=== PATIENT | female | born 1960 | race Caucasian/White ===

== ENCOUNTER 2020-10-14 11:32 | Inpatient (IN) | payer BC ==
[2020-10-14] MEDS ORDERED: Dexamethasone 10 MG/ML VIAL ONE (11:50)
[2020-10-14 13:11] LABS: Hemoglobin 14.5 g/dL (12.0-16.0); Mean Corpuscular HGB CONC 32.5 g/dL (32.0-36.0); Mean Corpuscular Hemoglobin 29.2 pg (27.0-31.0); Mean Corpuscular Volume 89.7 fL (78.0-98.0); Mean Platelet Volume 7.4 fL (7.4-10.4); Platelet Count 396 thou/uL (130-400); RBC Distribution Width 13.5 % (11.5-14.5); Red Blood Cell (RBC) Count 4.97 mill/uL (4.20-5.40); White Blood Cell (WBC) Count 18.2 thou/uL (4.8-10.8)
[2020-10-14 13:29] LABS: ALT (SGPT) 50 U/L (8-55); AST (SGOT) 31 U/L (5-34); Alkaline Phosphatase 97 U/L (40-110); Anion Gap 23 mmol/L (10-20); BUN (Urea Nitrogen) 63 mg/dL (9.8-20.1); Bilirubin, Total 0.7 mg/dL (0.2-1.2); Calc. Creatinine Clearance 0 mL/min (70-130); Calcium 8.9 mg/dL (7.8-10.44); Carbon Dioxide 20 mmol/L (23-31); Chloride 99 mmol/L (98-107); Globulin 3.3 g/dL (2.4-3.5); Glucose 145 mg/dL (80-115); Potassium 3.6 mmol/L (3.5-5.1); Protein, Total 7.3 g/dL (5.8-8.1); Sodium 138 mmol/L (136-145)
[2020-10-14 13:33] LABS: Band 20 % (5-11); Lymphocytes 3 % (21-51); MDiff Complete? YES; Metamyelocyte 1 % (0-0); Monocytes 9 % (0-10); Neutrophil 66 % (42-75); Platelet Morphology Comment Appears Adequate; RBC Morphology Normal; Reactive Lymphocytes 1 % (0-10)
[2020-10-14] MEDS ORDERED: Iopamidol-370 76% 500 ML 1 ML ONE (14:39)
[2020-10-14] MEDS ORDERED: cefTRIAXone\\ROCEPHIN 1 GM in Sodium Chloride 0.9% 100 ML IVPB SCH (15:00)
[2020-10-14] MEDS ORDERED: Ondansetron PF 4 MG/2 ML Vial IVP PRN (15:03)
[2020-10-14] MEDS ORDERED: Calcium Carbonate 500 MG ChewTAB PO PRN (15:03)
[2020-10-14] MEDS ORDERED: Sodium Chloride 0.65% Nasal 44 ML BOT EA NARE PRN (15:03)
[2020-10-14] MEDS ORDERED: Senokot S 8.6-50 MG TAB PO PRN (15:03)
[2020-10-14] MEDS ORDERED: Loratadine 10 MG TAB PO PRN (15:03)
[2020-10-14] MEDS ORDERED: HYDROcodone/Acetaminophen 5/325 mg Tablet PO PRN (15:03)
[2020-10-14] MEDS ORDERED: Bisacodyl 10 MG SUPP PR PRN (15:03)
[2020-10-14] MEDS ORDERED: Acetaminophen 325 MG TAB PO PRN (15:03)
[2020-10-14] MEDS ORDERED: Cepastat Lozenges 1 LOZ PO PRN (15:03)
[2020-10-14] MEDS ORDERED: Zolpidem Tartrate 5 MG TAB PO PRN (15:03)
[2020-10-14] MEDS ORDERED: Albuterol Sulfate 2.5 mg/3 ml Neb NEB PRN (15:08)
[2020-10-14] MEDS ORDERED: Albuterol 200 PUFF (6.7GM INHALER) INH PRN (15:33)
[2020-10-14] MEDS ORDERED: Azithromycin 500 MG in Sodium Chloride 0.9% 250 ML 250 ML IVPB SCH (16:00)
[2020-10-14] MEDS: REMDESIVIR (EUA) 200 MG in Sodium Chloride 0.9% 250 ML 210 ML IV SCH (17:43)
[2020-10-14] MEDS: cefTRIAXone\\ROCEPHIN 1 GM in Sodium Chloride 0.9% 100 ML IVPB SCH (20:23)
[2020-10-15] MEDS: REMDESIVIR (EUA) 200 MG in Sodium Chloride 0.9% 250 ML 210 ML IV SCH (01:02)
[2020-10-15] MEDS: Azithromycin 500 MG in Sodium Chloride 0.9% 250 ML 250 ML IVPB SCH ×2 (01:02→20:37)
[2020-10-15 06:35] LABS: ALT (SGPT) 41 U/L (8-55); AST (SGOT) 23 U/L (5-34); Albumin 3.5 g/dL (3.4-4.8); Alkaline Phosphatase 86 U/L (40-110); Anion Gap 18 mmol/L (10-20); BUN (Urea Nitrogen) 52 mg/dL (9.8-20.1); Bilirubin, Total 0.5 mg/dL (0.2-1.2); CRP (Inflammatory) 10.81 mg/dL (= or < 0.5); Calc. Creatinine Clearance 109 mL/min (70-130); Carbon Dioxide 21 mmol/L (23-31); Chloride 102 mmol/L (98-107); Globulin 3.5 g/dL (2.4-3.5); Glucose 140 mg/dL (80-115); Potassium 3.4 mmol/L (3.5-5.1); Sodium 138 mmol/L (136-145)
[2020-10-15 06:40] LABS: Band 23 % (5-11); Hemoglobin 13.4 g/dL (12.0-16.0); Lymphocytes 10 % (21-51); MDiff Complete? YES; Mean Corpuscular HGB CONC 32.4 g/dL (32.0-36.0); Mean Corpuscular Hemoglobin 29.1 pg (27.0-31.0); Mean Corpuscular Volume 89.6 fL (78.0-98.0); Mean Platelet Volume 7.4 fL (7.4-10.4); Monocytes 4 % (0-10); Neutrophil 63 % (42-75); Platelet Count 402 thou/uL (130-400); RBC Distribution Width 13.4 % (11.5-14.5); Red Blood Cell (RBC) Count 4.62 mill/uL (4.20-5.40); White Blood Cell (WBC) Count 16.9 thou/uL (4.8-10.8)
[2020-10-15] MEDS ORDERED: Potassium Chloride 20 MEQ TAB PO SCH (07:30)
[2020-10-15] MEDS: Dexamethasone 4 mg/ml Vial SLOW IVP SCH (08:51)
[2020-10-15] MEDS: Vitamin E 400 UNITS CAP PO SCH (08:51)
[2020-10-15] MEDS: Ascorbic Acid 500 mg Chewable Tablet PO SCH (08:51)
[2020-10-15] MEDS: Zinc Sulfate 220 MG CAP PO SCH (08:52)
[2020-10-15] MEDS: Enoxaparin Sodium 40 MG/0.4 ML SYRINGE SC SCH (08:52)
[2020-10-15] MEDS: Cholecalciferol 1,000 UNITS (25 MCG) TAB PO SCH (08:52)
[2020-10-15] MEDS: Loperamide HCl 2 MG CAP PO PRN (11:41)
[2020-10-15] MEDS: Ondansetron ODT 4 MG TAB PO PRN (11:41)
[2020-10-15] MEDS ORDERED: REMDESIVIR (EUA) 200 MG in Sodium Chloride 0.9% 250 ML 210 ML IV SCH (17:00)
[2020-10-15] MEDS: cefTRIAXone\\ROCEPHIN 1 GM in Sodium Chloride 0.9% 100 ML IVPB SCH (22:33)
[2020-10-16] MEDS: hydrALAZINE 20 MG/ML VIAL SLOW IVP PRN (07:17)
[2020-10-16] MEDS ORDERED: Potassium Chloride 20 MEQ TAB PO SCH (07:45)
[2020-10-16] MEDS: Cholecalciferol 1,000 UNITS (25 MCG) TAB PO SCH (09:41)
[2020-10-16] MEDS: Ascorbic Acid 500 mg Chewable Tablet PO SCH (09:41)
[2020-10-16] MEDS: Dexamethasone 4 mg/ml Vial SLOW IVP SCH (09:42)
[2020-10-16] MEDS: Enoxaparin Sodium 40 MG/0.4 ML SYRINGE SC SCH (09:42)
[2020-10-16] MEDS: Vitamin E 400 UNITS CAP PO SCH (09:43)
[2020-10-16] MEDS: Zinc Sulfate 220 MG CAP PO SCH (09:43)
[2020-10-16] MEDS: REMDESIVIR (EUA) 100 MG in Sodium Chloride 0.9% 250 ML 230 ML IV SCH (17:52)
[2020-10-16] MEDS: Azithromycin 500 MG in Sodium Chloride 0.9% 250 ML 250 ML IVPB SCH (20:32)
[2020-10-16] MEDS: cefTRIAXone\\ROCEPHIN 1 GM in Sodium Chloride 0.9% 100 ML IVPB SCH (21:58)
[2020-10-17] MEDS: Guaifenesin DM 100-10/5 ML UDCUP PO PRN ×2 (02:06→10:41)
[2020-10-17] MEDS: Ascorbic Acid 500 mg Chewable Tablet PO SCH (07:20)
[2020-10-17] MEDS: Vitamin E 400 UNITS CAP PO SCH (07:21)
[2020-10-17] MEDS: Enoxaparin Sodium 40 MG/0.4 ML SYRINGE SC SCH (07:21)
[2020-10-17] MEDS: Cholecalciferol 1,000 UNITS (25 MCG) TAB PO SCH (07:21)
[2020-10-17] MEDS: Dexamethasone 4 mg/ml Vial SLOW IVP SCH (07:21)
[2020-10-17] MEDS: Zinc Sulfate 220 MG CAP PO SCH (07:21)
[2020-10-17] MEDS: REMDESIVIR (EUA) 100 MG in Sodium Chloride 0.9% 250 ML 230 ML IV SCH (16:01)
[2020-10-17] MEDS: Ondansetron ODT 4 MG TAB PO PRN (17:38)
[2020-10-17] MEDS: cefTRIAXone\\ROCEPHIN 1 GM in Sodium Chloride 0.9% 100 ML IVPB SCH (21:26)
[2020-10-18] MEDS: Enoxaparin Sodium 40 MG/0.4 ML SYRINGE SC SCH ×2 (08:14→21:12)
[2020-10-18] MEDS: Zinc Sulfate 220 MG CAP PO SCH (08:14)
[2020-10-18] MEDS: Ascorbic Acid 500 mg Chewable Tablet PO SCH (08:14)
[2020-10-18] MEDS: Cholecalciferol 1,000 UNITS (25 MCG) TAB PO SCH (08:14)
[2020-10-18] MEDS: Ondansetron ODT 4 MG TAB PO PRN (08:15)
[2020-10-18] MEDS: Vitamin E 400 UNITS CAP PO SCH (08:15)
[2020-10-18] MEDS: Dexamethasone 4 mg/ml Vial SLOW IVP SCH (08:15)
[2020-10-18 09:08] LABS: Anion Gap 16 mmol/L (10-20); BUN (Urea Nitrogen) 23 mg/dL (9.8-20.1); Calc. Creatinine Clearance 154 mL/min (70-130); Calcium 8.6 mg/dL (7.8-10.44); Carbon Dioxide 18 mmol/L (23-31); Chloride 108 mmol/L (98-107); Glucose 130 mg/dL (80-115); Potassium 4.2 mmol/L (3.5-5.1); Sodium 138 mmol/L (136-145)
[2020-10-18 09:54] LABS: Band 12 % (5-11); Eosinophils 2 % (0-10); Hemoglobin 15.1 g/dL (12.0-16.0); Lymphocytes 10 % (21-51); MDiff Complete? YES; Mean Corpuscular HGB CONC 32.5 g/dL (32.0-36.0); Mean Corpuscular Hemoglobin 29.6 pg (27.0-31.0); Mean Corpuscular Volume 91.2 fL (78.0-98.0); Mean Platelet Volume 8.2 fL (7.4-10.4); Metamyelocyte 2 % (0-0); Monocytes 7 % (0-10); Neutrophil 67 % (42-75); Platelet Count 98 thou/uL (130-400); Platelet Morphology Comment Appears Decreased; RBC Distribution Width 13.6 % (11.5-14.5); Red Blood Cell (RBC) Count 5.11 mill/uL (4.20-5.40); Vacuoles SLIGHT; White Blood Cell (WBC) Count 17.7 thou/uL (4.8-10.8)
[2020-10-18] MEDS: REMDESIVIR (EUA) 100 MG in Sodium Chloride 0.9% 250 ML 230 ML IV SCH (16:26)
[2020-10-18] MEDS: cefTRIAXone\\ROCEPHIN 1 GM in Sodium Chloride 0.9% 100 ML IVPB SCH (21:11)
[2020-10-18] MEDS: Guaifenesin DM 100-10/5 ML UDCUP PO PRN (22:12)
[2020-10-19] MEDS: Vitamin E 400 UNITS CAP PO SCH (08:32)
[2020-10-19] MEDS: Cholecalciferol 1,000 UNITS (25 MCG) TAB PO SCH (08:32)
[2020-10-19] MEDS: Ascorbic Acid 500 mg Chewable Tablet PO SCH (08:32)
[2020-10-19] MEDS: Amlodipine 10 MG TAB PO SCH (08:32)
[2020-10-19] MEDS: Escitalopram Oxalate 10 mg Tablet PO SCH (08:33)
[2020-10-19] MEDS: Dexamethasone 4 mg/ml Vial SLOW IVP SCH (08:33)
[2020-10-19] MEDS: Zinc Sulfate 220 MG CAP PO SCH (08:33)
[2020-10-19] MEDS: Enoxaparin Sodium 40 MG/0.4 ML SYRINGE SC SCH (08:33)
[2020-10-19] MEDS ORDERED: Melatonin 3 MG TAB PO PRN (09:59)
[2020-10-19] MEDS ORDERED: clonazePAM 0.5 MG TAB PO PRN (10:01)
[2020-10-19] MEDS ORDERED: Sodium Chloride 0.65% Nasal 44 ML BOT EA NARE PRN (10:08)
[2020-10-19] MEDS ORDERED: Furosemide 20 MG/2 ML VIAL SLOW IVP SCH (10:15)
[2020-10-19] MEDS ORDERED: Ivermectin 3 MG TAB PO SCH (11:00)
[2020-10-19] MEDS: Thiamine HCl 200 MG/2 ML VIAL SLOW IVP SCH ×2 (11:42→21:16)
[2020-10-19] MEDS: Piperacillin/Tazobactam 3.375 GM in Sodium Chloride 0.9% 100 ML IVPB SCH ×2 (11:49→17:57)
[2020-10-19] MEDS: Azithromycin 500 MG in Sodium Chloride 0.9% 250 ML 250 ML IVPB SCH (11:59)
[2020-10-19] MEDS: Ascorbic Acid 2,000 MG in Sodium Chloride 0.9% 50 ML IVPB SCH ×2 (11:59→18:34)
[2020-10-19 12:18] LABS: Actual Bicarbonate (HCO3v) 21 mEq/L (22-28); Base Excess -1.3 mEq/L (-2.0 to +3.0); Calcium, Ionized (venous) 1.11 mmol/L (1.16-1.32); Chloride (VBG) 107 mmol/L (98-106); Hemoglobin (Hb) 14.9 g/dL (11.7-16.0); Sodium 137.3 mmol/L (133-146); pH (venous) 7.46 (7.32-7.43)
[2020-10-19 12:30] LABS: Hemoglobin 14.6 g/dL (12.0-16.0); Mean Corpuscular Hemoglobin 30.9 pg (27.0-31.0); Mean Platelet Volume 7.1 fL (7.4-10.4); Platelet Count 320 thou/uL (130-400); RBC Distribution Width 13.5 % (11.5-14.5); Red Blood Cell (RBC) Count 4.71 mill/uL (4.20-5.40); White Blood Cell (WBC) Count 23.1 thou/uL (4.8-10.8)
[2020-10-19 12:32] LABS: Platelet Count 320 thou/uL (130-400)
[2020-10-19 12:36] LABS: Reticulocyte Count 2.3 % (0.5-1.5)
[2020-10-19 12:37] LABS: INR-International Normal Ratio 1.2; Prothrombin Time 15.2 sec (12.0-14.7)
[2020-10-19 12:38] LABS: D-Dimer Test 2.56 *mcg/mL (0.27-0.43); PTT 33.8 sec (22.9-36.1)
[2020-10-19 12:42] LABS: CRP (Inflammatory) 16.01 mg/dL (= or < 0.5)
[2020-10-19 12:43] LABS: Fibrinogen 751 mg/dL (253-463)
[2020-10-19 12:48] LABS: FSP-Qualitative ABNORMAL (Normal); FSP-Semiquantitative >=5 & <20 mcg/mL (Less than 5)
[2020-10-19 12:51] LABS: Band 3 % (5-11); Eosinophils 2 % (0-10); Lymphocytes 7 % (21-51); MDiff Complete? YES; Monocytes 6 % (0-10); Neutrophil 82 % (42-75); Platelet Morphology Comment Appears Adequate; RBC Morphology Normal
[2020-10-19 13:33] LABS: Strep pneumo Urine Ag NEGATIVE (NEGATIVE)
[2020-10-19] MEDS: REMDESIVIR (EUA) 100 MG in Sodium Chloride 0.9% 250 ML 230 ML IV SCH (17:57)
[2020-10-19] MEDS: Famotidine 20 MG TAB PO SCH (21:15)
[2020-10-19] MEDS: Colchicine 0.6 MG TAB PO SCH (21:15)
[2020-10-20] MEDS: Ascorbic Acid 2,000 MG in Sodium Chloride 0.9% 50 ML IVPB SCH ×5 (00:28→23:21)
[2020-10-20] MEDS: Piperacillin/Tazobactam 3.375 GM in Sodium Chloride 0.9% 100 ML IVPB SCH ×5 (00:28→23:21)
[2020-10-20 03:49] LABS: Fibrinogen 737 mg/dL (253-463)
[2020-10-20 03:50] LABS: D-Dimer Test 2.09 *mcg/mL (0.27-0.43); INR-International Normal Ratio 1.3; PTT 36.3 sec (22.9-36.1)
[2020-10-20 03:58] LABS: FSP-Qualitative ABNORMAL (Normal); FSP-Semiquantitative >=5 & <20 mcg/mL (Less than 5); Platelet Count 306 thou/uL (130-400)
[2020-10-20 04:08] LABS: ALT (SGPT) 25 U/L (8-55); AST (SGOT) 14 U/L (5-34); Albumin 2.9 g/dL (3.4-4.8); Alkaline Phosphatase 97 U/L (40-110); Anion Gap 15 mmol/L (10-20); BUN (Urea Nitrogen) 23 mg/dL (9.8-20.1); Bilirubin, Direct 0.3 mg/dL (0.1-0.3); Bilirubin, Total 0.6 mg/dL (0.2-1.2); Calc. Creatinine Clearance 152 mL/min (70-130); Calcium 8.7 mg/dL (7.8-10.44); Carbon Dioxide 19 mmol/L (23-31); Chloride 107 mmol/L (98-107); Glucose 120 mg/dL (80-115); Protein, Total 5.9 g/dL (5.8-8.1); Sodium 137 mmol/L (136-145)
[2020-10-20] MEDS ORDERED: methylPREDNISolone Sod Succ/PF 125 MG/2 ML VIAL IVPB SCH (09:00)
[2020-10-20] MEDS: methylPREDNISolone Sod Succ 1 GM in Sodium Chloride 0.9% 250 ML 250 ML IVPB SCH (09:36)
[2020-10-20] MEDS: Cholecalciferol 1,000 UNITS (25 MCG) TAB PO SCH (09:37)
[2020-10-20] MEDS: Zinc Sulfate 220 MG CAP PO SCH (09:37)
[2020-10-20] MEDS: Escitalopram Oxalate 10 mg Tablet PO SCH (09:37)
[2020-10-20] MEDS: Famotidine 20 MG TAB PO SCH ×2 (09:37→20:25)
[2020-10-20] MEDS: Ivermectin 3 MG TAB PO SCH (09:37)
[2020-10-20] MEDS: Colchicine 0.6 MG TAB PO SCH ×2 (09:37→20:25)
[2020-10-20] MEDS: Amlodipine 10 MG TAB PO SCH (09:37)
[2020-10-20] MEDS: Thiamine HCl 200 MG/2 ML VIAL SLOW IVP SCH ×2 (09:38→22:11)
[2020-10-20] MEDS: Vitamin E 400 UNITS CAP PO SCH (09:39)
[2020-10-20] MEDS: Azithromycin 500 MG in Sodium Chloride 0.9% 250 ML 250 ML IVPB SCH (11:43)
[2020-10-21] MEDS: Piperacillin/Tazobactam 3.375 GM in Sodium Chloride 0.9% 100 ML IVPB SCH ×3 (05:28→17:23)
[2020-10-21] MEDS: Ascorbic Acid 2,000 MG in Sodium Chloride 0.9% 50 ML IVPB SCH ×3 (05:28→17:23)
[2020-10-21 08:11] LABS: Hemoglobin 14.3 g/dL (12.0-16.0); Mean Corpuscular HGB CONC 32.9 g/dL (32.0-36.0); Mean Corpuscular Volume 91.2 fL (78.0-98.0); Mean Platelet Volume 7.5 fL (7.4-10.4); Platelet Count 332 thou/uL (130-400); RBC Distribution Width 13.7 % (11.5-14.5); Red Blood Cell (RBC) Count 4.77 mill/uL (4.20-5.40); White Blood Cell (WBC) Count 19.8 thou/uL (4.8-10.8)
[2020-10-21 08:29] LABS: Anion Gap 14 mmol/L (10-20); BUN (Urea Nitrogen) 21 mg/dL (9.8-20.1); Calc. Creatinine Clearance 147 mL/min (70-130); Calcium 9.1 mg/dL (7.8-10.44); Carbon Dioxide 20 mmol/L (23-31); Chloride 108 mmol/L (98-107); Glucose 220 mg/dL (80-115); Potassium 3.7 mmol/L (3.5-5.1); Sodium 138 mmol/L (136-145)
[2020-10-21] MEDS: Vitamin E 400 UNITS CAP PO SCH (08:45)
[2020-10-21] MEDS: Famotidine 20 MG TAB PO SCH ×2 (08:45→20:22)
[2020-10-21] MEDS: Escitalopram Oxalate 10 mg Tablet PO SCH (08:46)
[2020-10-21] MEDS: Cholecalciferol 1,000 UNITS (25 MCG) TAB PO SCH (08:46)
[2020-10-21] MEDS: Amlodipine 10 MG TAB PO SCH (08:46)
[2020-10-21] MEDS: Ivermectin 3 MG TAB PO SCH (08:46)
[2020-10-21] MEDS: Colchicine 0.6 MG TAB PO SCH ×2 (08:46→20:22)
[2020-10-21] MEDS: Zinc Sulfate 220 MG CAP PO SCH (08:46)
[2020-10-21] MEDS: Thiamine HCl 200 MG/2 ML VIAL SLOW IVP SCH ×2 (08:49→20:23)
[2020-10-21] MEDS: methylPREDNISolone Sod Succ 1 GM in Sodium Chloride 0.9% 250 ML 250 ML IVPB SCH (09:35)
[2020-10-21 09:47] LABS: Band 7 % (5-11); Lymphocytes 6 % (21-51); MDiff Complete? YES; Monocytes 2 % (0-10); Neutrophil 85 % (42-75); RBC Morphology Normal
[2020-10-21] MEDS: Azithromycin 500 MG in Sodium Chloride 0.9% 250 ML 250 ML IVPB SCH (12:33)
[2020-10-21] MEDS: METHYLPREDNISOLONE SOD SUCC IVPB SCH (12:45)
[2020-10-21] MEDS: SODIUM CHLORIDE 0.9% IVPB SCH (12:45)
[2020-10-22] MEDS: Ascorbic Acid 2,000 MG in Sodium Chloride 0.9% 50 ML IVPB SCH ×2 (00:04→07:00)
[2020-10-22] MEDS: Piperacillin/Tazobactam 3.375 GM in Sodium Chloride 0.9% 100 ML IVPB SCH ×4 (00:05→18:21)
[2020-10-22 03:22] LABS: Hemoglobin 13.7 g/dL (12.0-16.0); Mean Corpuscular HGB CONC 33.5 g/dL (32.0-36.0); Mean Corpuscular Hemoglobin 30.3 pg (27.0-31.0); Mean Corpuscular Volume 90.4 fL (78.0-98.0); Mean Platelet Volume 7.5 fL (7.4-10.4); Platelet Count 346 thou/uL (130-400); RBC Distribution Width 13.7 % (11.5-14.5); Red Blood Cell (RBC) Count 4.51 mill/uL (4.20-5.40); White Blood Cell (WBC) Count 20.9 thou/uL (4.8-10.8)
[2020-10-22 03:36] LABS: Anion Gap 14 mmol/L (10-20); BUN (Urea Nitrogen) 22 mg/dL (9.8-20.1); Calc. Creatinine Clearance 143 mL/min (70-130); Calcium 8.4 mg/dL (7.8-10.44); Carbon Dioxide 18 mmol/L (23-31); Chloride 111 mmol/L (98-107); Glucose 238 mg/dL (80-115); Potassium 3.8 mmol/L (3.5-5.1); Sodium 139 mmol/L (136-145)
[2020-10-22 03:46] LABS: Band 2 % (5-11); Lymphocytes 13 % (21-51); MDiff Complete? YES; Monocytes 9 % (0-10); Neutrophil 76 % (42-75); Platelet Morphology Comment Appears Adequate; RBC Morphology Normal
[2020-10-22] MEDS: Amlodipine 10 MG TAB PO SCH (08:02)
[2020-10-22] MEDS: Escitalopram Oxalate 10 mg Tablet PO SCH (08:02)
[2020-10-22] MEDS: Famotidine 20 MG TAB PO SCH ×2 (08:02→19:44)
[2020-10-22] MEDS: Vitamin E 400 UNITS CAP PO SCH (08:03)
[2020-10-22] MEDS: Ivermectin 3 MG TAB PO SCH (08:03)
[2020-10-22] MEDS: Zinc Sulfate 220 MG CAP PO SCH (08:03)
[2020-10-22] MEDS: Cholecalciferol 1,000 UNITS (25 MCG) TAB PO SCH (08:03)
[2020-10-22] MEDS: Colchicine 0.6 MG TAB PO SCH ×2 (08:03→19:44)
[2020-10-22] MEDS: Thiamine HCl 200 MG/2 ML VIAL SLOW IVP SCH (08:03)
[2020-10-22] MEDS: Loperamide HCl 2 MG CAP PO PRN (08:18)
[2020-10-22] MEDS: Enoxaparin Sodium 40 MG/0.4 ML SYRINGE SC SCH (10:52)
[2020-10-22] MEDS: Ascorbic Acid 500 mg Chewable Tablet PO SCH ×2 (10:53→19:44)
[2020-10-22] MEDS: Thiamine 100 MG TAB PO SCH (10:53)
[2020-10-22] MEDS: METHYLPREDNISOLONE SOD SUCC IVPB SCH (11:16)
[2020-10-22] MEDS: SODIUM CHLORIDE 0.9% IVPB SCH (11:16)
[2020-10-23 05:51] LABS: #Lymphocytes 0.9 thou/uL (1.20-3.40); #Neutrophils 15.7 thou/uL (1.40-6.50); %Basophils 0.1 % (0.0-1.0); %Eosinophils 0.1 % (0.0-10.0); %Lymphocytes 4.9 % (21.0-51.0); %Monocytes 5.5 % (0.0-10.0); %Neutrophils 89.5 % (42.0-75.0); Hemoglobin 13.2 g/dL (12.0-16.0); Mean Corpuscular HGB CONC 32.9 g/dL (32.0-36.0); Mean Corpuscular Hemoglobin 29.7 pg (27.0-31.0); Mean Corpuscular Volume 90.2 fL (78.0-98.0); Platelet Count 357 thou/uL (130-400); RBC Distribution Width 13.8 % (11.5-14.5); Red Blood Cell (RBC) Count 4.43 mill/uL (4.20-5.40); White Blood Cell (WBC) Count 17.5 thou/uL (4.8-10.8)
[2020-10-23] MEDS: Piperacillin/Tazobactam 3.375 GM in Sodium Chloride 0.9% 100 ML IVPB SCH (05:55)
[2020-10-23] MEDS: Zinc Sulfate 220 MG CAP PO SCH (08:38)
[2020-10-23] MEDS: Escitalopram Oxalate 10 mg Tablet PO SCH (08:38)
[2020-10-23] MEDS: Ascorbic Acid 500 mg Chewable Tablet PO SCH ×2 (08:38→21:08)
[2020-10-23] MEDS: Thiamine 100 MG TAB PO SCH (08:38)
[2020-10-23] MEDS: Cholecalciferol 1,000 UNITS (25 MCG) TAB PO SCH (08:38)
[2020-10-23] MEDS: Colchicine 0.6 MG TAB PO SCH ×2 (08:38→21:09)
[2020-10-23] MEDS: Amlodipine 10 MG TAB PO SCH (08:39)
[2020-10-23] MEDS: Famotidine 20 MG TAB PO SCH ×2 (08:39→21:08)
[2020-10-23] MEDS: Enoxaparin Sodium 40 MG/0.4 ML SYRINGE SC SCH (08:39)
[2020-10-23] MEDS: Ivermectin 3 MG TAB PO SCH (08:42)
[2020-10-23] MEDS: Vitamin E 400 UNITS CAP PO SCH (08:42)
[2020-10-23] MEDS: SODIUM CHLORIDE 0.9% IVPB SCH (09:42)
[2020-10-23] MEDS: METHYLPREDNISOLONE SOD SUCC IVPB SCH (09:42)
[2020-10-24 05:34] LABS: Band 2 % (5-11); Hemoglobin 13.1 g/dL (12.0-16.0); Lymphocytes 4 % (21-51); MDiff Complete? YES; Mean Corpuscular HGB CONC 33.4 g/dL (32.0-36.0); Mean Corpuscular Hemoglobin 29.8 pg (27.0-31.0); Mean Corpuscular Volume 89.3 fL (78.0-98.0); Mean Platelet Volume 7.9 fL (7.4-10.4); Monocytes 10 % (0-10); Neutrophil 84 % (42-75); Platelet Count 309 thou/uL (130-400); Platelet Morphology Comment Appears Adequate; RBC Distribution Width 13.5 % (11.5-14.5); RBC Morphology Normal; Red Blood Cell (RBC) Count 4.39 mill/uL (4.20-5.40); White Blood Cell (WBC) Count 14.3 thou/uL (4.8-10.8)
[2020-10-24] MEDS: SODIUM CHLORIDE 0.9% IVPB SCH (09:15)
[2020-10-24] MEDS: Enoxaparin Sodium 40 MG/0.4 ML SYRINGE SC SCH (09:15)
[2020-10-24] MEDS: METHYLPREDNISOLONE SOD SUCC IVPB SCH (09:15)
[2020-10-24] MEDS: Colchicine 0.6 MG TAB PO SCH ×2 (09:15→20:10)
[2020-10-24] MEDS: Amlodipine 10 MG TAB PO SCH (09:16)
[2020-10-24] MEDS: Famotidine 20 MG TAB PO SCH ×2 (09:16→20:11)
[2020-10-24] MEDS: Cholecalciferol 1,000 UNITS (25 MCG) TAB PO SCH (09:17)
[2020-10-24] MEDS: Thiamine 100 MG TAB PO SCH (09:17)
[2020-10-24] MEDS: Zinc Sulfate 220 MG CAP PO SCH (09:17)
[2020-10-24] MEDS: Ascorbic Acid 500 mg Chewable Tablet PO SCH ×2 (09:17→20:10)
[2020-10-24] MEDS: Ivermectin 3 MG TAB PO SCH (09:17)
[2020-10-24] MEDS: Escitalopram Oxalate 10 mg Tablet PO SCH (09:17)
[2020-10-24] MEDS: Vitamin E 400 UNITS CAP PO SCH (09:17)
[2020-10-24] MEDS: hydrALAZINE 20 MG/ML VIAL SLOW IVP PRN (23:47)
[2020-10-25] MEDS: hydrALAZINE 20 MG/ML VIAL SLOW IVP SCH ×2 (00:58→04:19)
[2020-10-25 05:08] LABS: #Lymphocytes 0.8 thou/uL (1.20-3.40); #Monocytes 0.6 thou/uL (0.11-0.59); #Neutrophils 14.7 thou/uL (1.40-6.50); %Basophils 0.1 % (0.0-1.0); %Eosinophils 0.1 % (0.0-10.0); %Lymphocytes 4.7 % (21.0-51.0); %Monocytes 3.8 % (0.0-10.0); %Neutrophils 91.3 % (42.0-75.0); Hemoglobin 13.5 g/dL (12.0-16.0); Mean Corpuscular HGB CONC 32.6 g/dL (32.0-36.0); Mean Corpuscular Hemoglobin 29.1 pg (27.0-31.0); Mean Corpuscular Volume 89.2 fL (78.0-98.0); Mean Platelet Volume 7.7 fL (7.4-10.4); Platelet Count 374 thou/uL (130-400); RBC Distribution Width 13.5 % (11.5-14.5); Red Blood Cell (RBC) Count 4.64 mill/uL (4.20-5.40); White Blood Cell (WBC) Count 16.1 thou/uL (4.8-10.8)
[2020-10-25] MEDS: Vitamin E 400 UNITS CAP PO SCH (08:14)
[2020-10-25] MEDS: Colchicine 0.6 MG TAB PO SCH ×2 (08:14→20:24)
[2020-10-25] MEDS: Famotidine 20 MG TAB PO SCH ×2 (08:14→20:24)
[2020-10-25] MEDS: Zinc Sulfate 220 MG CAP PO SCH (08:15)
[2020-10-25] MEDS: Thiamine 100 MG TAB PO SCH (08:15)
[2020-10-25] MEDS: Cholecalciferol 1,000 UNITS (25 MCG) TAB PO SCH (08:15)
[2020-10-25] MEDS: Escitalopram Oxalate 10 mg Tablet PO SCH (08:15)
[2020-10-25] MEDS: Amlodipine 10 MG TAB PO SCH (08:15)
[2020-10-25] MEDS: Enoxaparin Sodium 40 MG/0.4 ML SYRINGE SC SCH (08:15)
[2020-10-25] MEDS: Ascorbic Acid 500 mg Chewable Tablet PO SCH ×2 (08:15→20:24)
[2020-10-25] MEDS: SODIUM CHLORIDE 0.9% IVPB SCH (09:06)
[2020-10-25] MEDS: METHYLPREDNISOLONE SOD SUCC IVPB SCH (09:06)
[2020-10-25] MEDS: Ivermectin 3 MG TAB PO SCH (09:06)
[2020-10-25] MEDS: predniSONE 20 MG TAB PO SCH (20:24)
[2020-10-26 07:47] LABS: #Eosinphils 0.1 thou/uL (0.0-0.7); #Monocytes 1.1 thou/uL (0.11-0.59); #Neutrophils 14.6 thou/uL (1.40-6.50); %Basophils 0.2 % (0.0-1.0); %Eosinophils 0.3 % (0.0-10.0); %Lymphocytes 6.1 % (21.0-51.0); %Monocytes 6.6 % (0.0-10.0); %Neutrophils 86.9 % (42.0-75.0); Mean Corpuscular HGB CONC 31.1 g/dL (32.0-36.0); Mean Platelet Volume 7.8 fL (7.4-10.4); Platelet Count 377 thou/uL (130-400); RBC Distribution Width 14.3 % (11.5-14.5); Red Blood Cell (RBC) Count 5.01 mill/uL (4.20-5.40); White Blood Cell (WBC) Count 16.8 thou/uL (4.8-10.8)
[2020-10-26 08:12] LABS: Anion Gap 13 mmol/L (10-20); BUN (Urea Nitrogen) 20 mg/dL (9.8-20.1); Calc. Creatinine Clearance 147 mL/min (70-130); Carbon Dioxide 17 mmol/L (23-31); Chloride 110 mmol/L (98-107); Glucose 222 mg/dL (80-115); Potassium 4.4 mmol/L (3.5-5.1); Sodium 136 mmol/L (136-145)
[2020-10-26] MEDS: Escitalopram Oxalate 10 mg Tablet PO SCH (09:35)
[2020-10-26] MEDS: Vitamin E 400 UNITS CAP PO SCH (09:35)
[2020-10-26] MEDS: Zinc Sulfate 220 MG CAP PO SCH (09:35)
[2020-10-26] MEDS: Cholecalciferol 1,000 UNITS (25 MCG) TAB PO SCH (09:35)
[2020-10-26] MEDS: Famotidine 20 MG TAB PO SCH (09:35)
[2020-10-26] MEDS: Enoxaparin Sodium 40 MG/0.4 ML SYRINGE SC SCH (09:35)
[2020-10-26] MEDS: Thiamine 100 MG TAB PO SCH (09:35)
[2020-10-26] MEDS: Amlodipine 10 MG TAB PO SCH (09:35)
[2020-10-26] MEDS: Colchicine 0.6 MG TAB PO SCH ×2 (09:35→20:54)
[2020-10-26] MEDS: predniSONE 20 MG TAB PO SCH ×2 (09:36→20:54)
[2020-10-26] MEDS: Ascorbic Acid 500 mg Chewable Tablet PO SCH ×2 (09:36→20:54)
[2020-10-26] MEDS: Benzonatate 100 MG CAP PO PRN ×2 (09:38→16:49)
[2020-10-26] MEDS ORDERED: Dextrose 5% in Water 1,000 ML IV PRN (13:54)
[2020-10-26] MEDS ORDERED: Dextrose 50% Abboject 50 ML SYRINGE SLOW IVP PRN (13:54)
[2020-10-26] MEDS: HumaLOG 300 UNITS/3 ML VIAL SC PRN ×2 (16:48→20:51)
[2020-10-26] MEDS ORDERED: Lantus 1000 UNITS/10 ML VIAL SC SCH (21:00)
[2020-10-27] MEDS: HumaLOG 300 UNITS/3 ML VIAL SC PRN ×4 (05:58→20:58)
[2020-10-27 08:18] LABS: #Lymphocytes 1.1 thou/uL (1.20-3.40); #Monocytes 0.9 thou/uL (0.11-0.59); #Neutrophils 12.9 thou/uL (1.40-6.50); %Basophils 0.1 % (0.0-1.0); %Eosinophils 0.2 % (0.0-10.0); %Monocytes 6.2 % (0.0-10.0); %Neutrophils 86.5 % (42.0-75.0); Hemoglobin 13.3 g/dL (12.0-16.0); Mean Corpuscular HGB CONC 32.8 g/dL (32.0-36.0); Mean Corpuscular Hemoglobin 29.4 pg (27.0-31.0); Mean Corpuscular Volume 89.7 fL (78.0-98.0); Mean Platelet Volume 7.8 fL (7.4-10.4); Platelet Count 379 thou/uL (130-400); RBC Distribution Width 13.9 % (11.5-14.5); Red Blood Cell (RBC) Count 4.52 mill/uL (4.20-5.40)
[2020-10-27 08:24] LABS: Hemoglobin A1c 7.2 % (4.0-6.0)
[2020-10-27 08:41] LABS: Anion Gap 14 mmol/L (10-20); BUN (Urea Nitrogen) 17 mg/dL (9.8-20.1); Calc. Creatinine Clearance 161 mL/min (70-130); Carbon Dioxide 20 mmol/L (23-31); Chloride 107 mmol/L (98-107); Glucose 178 mg/dL (80-115); Potassium 3.6 mmol/L (3.5-5.1); Sodium 137 mmol/L (136-145)
[2020-10-27] MEDS: Enoxaparin Sodium 40 MG/0.4 ML SYRINGE SC SCH (09:18)
[2020-10-27] MEDS: Guaifenesin DM 100-10/5 ML UDCUP PO PRN (09:18)
[2020-10-27] MEDS: Ascorbic Acid 500 mg Chewable Tablet PO SCH ×2 (09:19→21:00)
[2020-10-27] MEDS: Colchicine 0.6 MG TAB PO SCH ×2 (09:19→21:00)
[2020-10-27] MEDS: Vitamin E 400 UNITS CAP PO SCH (09:19)
[2020-10-27] MEDS: Thiamine 100 MG TAB PO SCH (09:20)
[2020-10-27] MEDS: Zinc Sulfate 220 MG CAP PO SCH (09:20)
[2020-10-27] MEDS: Escitalopram Oxalate 10 mg Tablet PO SCH (09:20)
[2020-10-27] MEDS: Amlodipine 10 MG TAB PO SCH (09:20)
[2020-10-27] MEDS: predniSONE 20 MG TAB PO SCH (09:20)
[2020-10-27] MEDS: Cholecalciferol 1,000 UNITS (25 MCG) TAB PO SCH (09:20)
[2020-10-27] MEDS: Lantus 1000 UNITS/10 ML VIAL SC SCH (20:58)
[2020-10-28 05:53] LABS: #Eosinphils 0.1 thou/uL (0.0-0.7); #Lymphocytes 1.2 thou/uL (1.20-3.40); #Neutrophils 9.5 thou/uL (1.40-6.50); %Basophils 0.1 % (0.0-1.0); %Lymphocytes 10.4 % (21.0-51.0); %Monocytes 8.3 % (0.0-10.0); %Neutrophils 80.3 % (42.0-75.0); Hemoglobin 12.9 g/dL (12.0-16.0); Mean Corpuscular HGB CONC 32.3 g/dL (32.0-36.0); Mean Corpuscular Volume 89.7 fL (78.0-98.0); Mean Platelet Volume 8.1 fL (7.4-10.4); Platelet Count 328 thou/uL (130-400); Red Blood Cell (RBC) Count 4.46 mill/uL (4.20-5.40); White Blood Cell (WBC) Count 11.8 thou/uL (4.8-10.8)
[2020-10-28] MEDS: HumaLOG 300 UNITS/3 ML VIAL SC PRN ×4 (06:00→20:44)
[2020-10-28 06:14] LABS: Anion Gap 14 mmol/L (10-20); BUN (Urea Nitrogen) 15 mg/dL (9.8-20.1); Calc. Creatinine Clearance 166 mL/min (70-130); Carbon Dioxide 20 mmol/L (23-31); Chloride 107 mmol/L (98-107); Glucose 162 mg/dL (80-115); Potassium 3.5 mmol/L (3.5-5.1); Sodium 137 mmol/L (136-145)
[2020-10-28] MEDS: Vitamin E 400 UNITS CAP PO SCH (07:56)
[2020-10-28] MEDS: Cholecalciferol 1,000 UNITS (25 MCG) TAB PO SCH (07:57)
[2020-10-28] MEDS: Amlodipine 10 MG TAB PO SCH (07:57)
[2020-10-28] MEDS: Colchicine 0.6 MG TAB PO SCH ×2 (07:57→19:04)
[2020-10-28] MEDS: Ascorbic Acid 500 mg Chewable Tablet PO SCH ×2 (07:57→19:04)
[2020-10-28] MEDS: Zinc Sulfate 220 MG CAP PO SCH (07:58)
[2020-10-28] MEDS: Escitalopram Oxalate 10 mg Tablet PO SCH (07:58)
[2020-10-28] MEDS: Enoxaparin Sodium 40 MG/0.4 ML SYRINGE SC SCH (07:58)
[2020-10-28] MEDS: predniSONE 20 MG TAB PO SCH (07:58)
[2020-10-28] MEDS: Thiamine 100 MG TAB PO SCH (07:58)
[2020-10-28 08:47] VITALS: BMI 43.0
[2020-10-28] MEDS: Lantus 1000 UNITS/10 ML VIAL SC SCH (20:44)
[2020-10-29] MEDS: HumaLOG 300 UNITS/3 ML VIAL SC PRN ×2 (06:09→17:14)
[2020-10-29] MEDS: Enoxaparin Sodium 40 MG/0.4 ML SYRINGE SC SCH (08:09)
[2020-10-29] MEDS: Vitamin E 400 UNITS CAP PO SCH (08:10)
[2020-10-29] MEDS: Cholecalciferol 1,000 UNITS (25 MCG) TAB PO SCH (08:10)
[2020-10-29] MEDS: Thiamine 100 MG TAB PO SCH (08:10)
[2020-10-29] MEDS: Ascorbic Acid 500 mg Chewable Tablet PO SCH ×2 (08:10→21:00)
[2020-10-29] MEDS: Amlodipine 10 MG TAB PO SCH (08:10)
[2020-10-29] MEDS: predniSONE 20 MG TAB PO SCH (08:11)
[2020-10-29] MEDS: Escitalopram Oxalate 10 mg Tablet PO SCH (08:11)
[2020-10-29] MEDS: Zinc Sulfate 220 MG CAP PO SCH (08:11)
[2020-10-29] MEDS: Colchicine 0.6 MG TAB PO SCH ×2 (08:11→21:00)
[2020-10-29] MEDS: Lantus 1000 UNITS/10 ML VIAL SC SCH (21:01)
[2020-10-30] MEDS: predniSONE 20 MG TAB PO SCH (08:35)
[2020-10-30] MEDS: Escitalopram Oxalate 10 mg Tablet PO SCH (08:35)
[2020-10-30] MEDS: Vitamin E 400 UNITS CAP PO SCH (08:35)
[2020-10-30] MEDS: Zinc Sulfate 220 MG CAP PO SCH (08:35)
[2020-10-30] MEDS: Amlodipine 10 MG TAB PO SCH (08:35)
[2020-10-30] MEDS: Cholecalciferol 1,000 UNITS (25 MCG) TAB PO SCH (08:35)
[2020-10-30] MEDS: Colchicine 0.6 MG TAB PO SCH (08:35)
[2020-10-30] MEDS: Ascorbic Acid 500 mg Chewable Tablet PO SCH (08:35)
[2020-10-30] MEDS: Thiamine 100 MG TAB PO SCH (08:35)
[2020-10-30] MEDS: Enoxaparin Sodium 40 MG/0.4 ML SYRINGE SC SCH (08:36)
[2020-10-30] MEDS: HumaLOG 300 UNITS/3 ML VIAL SC PRN ×2 (13:05→17:42)
[2020-10-30 17:21] VITALS: BP 134/67; TEMP 97.9
[2020-11-01] MEDS ORDERED: Ivermectin 3 MG TAB PO SCH (09:00)
== END 2020-10-30 18:15 | DRG 177 ==
LOC: ERS 11:32 → ERHOLD 14:10 → 2SW 16:55 → IMCU/EMU 10-19 09:47 → 2SW 10-24 15:39
PROVIDERS: ADMIT Internal Medicine; ATTEND Hospitalist
PROC: 8E0ZXY6 Isolation (ICD-10-PCS; principal; 2020-10-14)
PROC: XW043E5 Introduction of Remdesivir Anti-infective into Central Vein, Percutaneous Approach, New Technology Group 5 (ICD-10-PCS; 2020-10-14)
PROC: 5A09557 Assistance with Respiratory Ventilation, Greater than 96 Consecutive Hours, Continuous Positive Airway Pressure (ICD-10-PCS; 2020-10-19)
DX: U07.1 COVID-19 (principal); J12.82 Pneumonia due to coronavirus disease 2019; J96.01 Acute respiratory failure with hypoxia; N17.9 Acute kidney failure, unspecified; Z68.41 Body mass index [BMI] 40.0-44.9, adult; I10 Essential (primary) hypertension; F41.9 Anxiety disorder, unspecified; F32.9 Major depressive disorder, single episode, unspecified; Z79.899 Other long term (current) drug therapy; Z90.710 Acquired absence of both cervix and uterus; K76.0 Fatty (change of) liver, not elsewhere classified; K44.9 Diaphragmatic hernia without obstruction or gangrene; E04.1 Nontoxic single thyroid nodule; E87.6 Hypokalemia; E66.01 Morbid (severe) obesity due to excess calories; I49.5 Sick sinus syndrome; Z87.440 Personal history of urinary (tract) infections; D69.59 Other secondary thrombocytopenia; Z82.3 Family history of stroke; Z81.8 Family history of other mental and behavioral disorders; D72.825 Bandemia; R73.9 Hyperglycemia, unspecified; K21.9 Gastro-esophageal reflux disease without esophagitis
CPT/HCPCS: 36415; 36416; 71045; 71275; 80048; 80053; 80076; 82728; 82805; 83010; 83036; 83615; 83735; 83880; 84145; 84484; 84550; 85025; 85046; 85049; 85060; 85300; 85362; 85379; 85384; 85610; 85730; 86140; 87086; 87449; 87635; 93005; 94660; 96374; J0360; J0456; J0696; J1100; J1650; J1652; J1815; J1940; J2543; J2930; J3411; J3490; J7050; J7512; Q0162; Q9967; U0003; U0005